=== PATIENT | female | born 1935 | race Caucasian/White ===

== ENCOUNTER → 2019-11-04 00:01 | Outpatient (RCR) | payer MEDICARE, OTHER, MEDICAID, SELFPAY | LOC: WOUND 10-07 11:06 | PROVIDERS: Family Provider Family Medicine; Visit Provider Thoracic Surgery (Cardiothoracic Vascular Surgery) | DX: E11.621 Type 2 diabetes mellitus with foot ulcer (principal); L97.512 Non-pressure chronic ulcer of other part of right foot with fat layer exposed; I96 Gangrene, not elsewhere classified | CPT/HCPCS: 11042 ×2 ==

== ENCOUNTER 2019-11-12 12:23 | Inpatient (IN) | payer MEDICARE, OTHER, MEDICAID, SELFPAY ==
[2019-11-12] VITALS (14 sets, daily range): BP systolic 82–114; BP diastolic 38–74; PULSE 92–120; RESP 14–27; TEMP 36.6; O2SAT 95–100; BMI 37.8
--- NOTE | 2019-11-12 12:26 | ED_ITS ---
Entered by Alla Ann, acting as scribe for HPI - CPR General: Chief Complaint: Cardiac Arrest/CPR Stated Complaint: POST CPR Time Seen by Provider: 11/12/19 12:28 Source: patient and EMS Mode of arrival: EMS Limitations: no limitations History of Present Illness: HPI narrative: 83 yo female presents with shortness of breath and unresponsive at dialysis clinic. per EMS when they arrived the pt was pulseless and they started CPR for 2 minutes. per family pt wears 3L of Oxygen at home. pt had nausea and vomiting this morning. pt states she just has knee pain. pt denies any other symptoms at this time. 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: No Shock advised: No Initial findings in the field: unresponsive and no pulse (per EMS for 2 minutes) Associated symptoms: chest pain (at the dialysis clinic) Known history of: other (Afib with RVR) Treatments prior to arrival: chest compressions and other (oxygen) Review of Systems General: Reports: 10 or more systems reviewed and unremarkable except in HPI and below Const: Reports: fatigue and malaise; Denies: fever, chills, body aches or night sweats Eyes: Reports: blurry vision; Denies: change in vision ENMT: Denies: throat pain, oral sores/lesions, dental pain, nasal discharge or nasal congestion GI: Reports: nausea, vomiting and constipation; Denies: abdominal pain, vomiting blood, coffee grounds in vomit, difficulty swallowing, heartburn/indigestion, diarrhea, cramping, blood in stool or black tarry stool : Denies: flank pain, painful urination, urinary frequency, urinary urgency, urinary incontinence or blood in urine Musc: Reports: back pain and extremity pain; Denies: neck pain, extremity swelling, joint pain or joint swelling Skin/Breast: Denies: rash, itching or redness Neuro: Denies: headache, numbness in extremities, weakness in extremities, changes in sensation, lack of coordination, difficulty walking, frequent falls, dizziness, vertigo or confusion Psych: Denies: anxiety, depression, loss of interest, visual hallucinations, auditory hallucinations, suicidal ideation or homicidal ideation Endo: Denies: excessive urination, excessive thirst, tired all the time or cold intolerance Simeon/Lymph: Denies: easy bruising, easy bleeding, petechiae, enlarged lymph nodes or tender lymph nodes PFSH ED PFSH: Statuses (acute, chronic, etc) shown below reflect problem list status as previously entered and may not be historically accurate Medical History (Updated 11/12/19 @ 20:03 by Den Lind MD) CAD (coronary artery disease) (Acute) CHF (congestive heart failure) (Acute) Hemodialysis access, AV graft (Acute) History of arthritis (Acute) History of chronic back pain (Acute) History of chronic hypertension (Acute) History of diabetes mellitus (Acute) Renal disease (Acute) Systolic and diastolic CHF, acute on chronic (Acute) Surgical History History of coronary angioplasty (Acute) Family History (Updated 11/12/19 @ 20:02 by Den Lind MD) Other CAD (coronary artery disease) Diabetes Hypertension Social History (Updated 11/12/19 @ 20:03 by Den Lind MD) Smoking and tobacco status: former smoker Alcohol intake: never Substance/Drug Use: never Household members: family Housing: House Current occupational status: retired Physical Exam Const: COMMON NORMALS: average body habitus and oriented x3 GENERAL APPEARANCE: cooperative, comfortable, well kempt and well developed NUTRITIONAL APPEARANCE: obese ORIENTATION/CONSCIOUSNESS: Yes awake, Yes oriented to person and Yes oriented to place HENMT: COMMON NORMALS: normocephalic, head/scalp atraumatic, EAC's normal, TM's normal bilaterally, external nose normal, moist oral mucous membranes and oropharynx normal HEAD & SCALP: normocephalic and atraumatic NOSE: external nose normal EXTERNAL AUDITORY CANAL: EAC's normal TYMPANIC MEMBRANE: TM's normal bilaterally MOUTH: oral and palatal mucosa normal, lip normal and tongue normal THROAT: posterior oropharynx normal and tonsils normal Eye: COMMON NORMALS: PERRL, EOMs intact bilaterally, conjunctivae normal and no scleral icterus CONJUNCTIVA: Yes conjunctivae normal PUPIL: Yes PERRL Neck/C-Spine: COMMON NORMALS: full ROM, no lymphadenopathy, supple, no meningeal signs and thyroid normal THYROID: thyroid normal and asymmetrical Lymph: LYMPHATIC: no lymphadenopathy noted Chest: CHEST: Yes tenderness sternum (mild) Resp: COMMON NORMALS: normal respiratory effort, no retractions, no use of accessory muscles and clear to auscultation bilaterally AUSCULTATION: clear to auscultation bilaterally Cardio: COMMON NORMALS: regular rate and regular rhythm RATE: regular rate RHYTHM: regular rhythm HEART SOUNDS: no murmurs GI: COMMON NORMALS: normal to inspection, nondistended, normoactive bowel sounds, soft to palpation and no hepatosplenomegaly PALPATION: Yes soft and Yes no hepatosplenomegaly : COMMON NORMALS: Yes no CVA tenderness BLADDER/KIDNEY EXAM: Yes no CVA tenderness Back/Pelvis: COMMON NORMALS: no CVA tenderness LUMBAR SPINE/LOWER BACK: Yes normal to inspection Extremity: COMMON NORMALS: no clubbing, cyanosis or edema, no calf tenderness and no pedal edema Neuro: COMMON NORMALS: oriented x3 SENSORIUM/ORIENTATION: Yes oriented to person and Yes oriented to place MENINGEAL SIGNS: Yes no meningeal signs Psych: APPEARANCE: Yes well kempt Skin: COMMON NORMALS: no rashes or lesions noted and skin turgor normal GENERAL SKIN EXAM: no rashes or lesions noted and turgor normal Course ED course: [address] Thomas for admission, he will admit the pt. Patient is doing well at this point she spontaneously converted she is awake and alert. Family is present reports she is had several these episodes at home with syncopal-like episodes she had previously had known A. fib with RVR she is on metoprolol. She is also on Midrin. Were going to go ahead and put her in ICU I suspect she may have had a syncopal episode and never was really in full cardiac arrest. She has peripheral vascular disease and is very difficult to palpate a pulse when I examine her. She is anemic as well. I suspect she will need some medication adjustments. Her first troponin is elevated I think that is more consistent with her chronic renal disease but will need subsequent troponins. Vital Signs: Vital signs: Vital Signs Temperature 98.9 F 11/13/19 06:00 Pulse Rate 88 11/13/19 06:00 Respiratory Rate 22 H 11/13/19 06:00 Blood Pressure 90/37 11/13/19 06:00 Pulse Oximetry 100 11/13/19 06:00 MDM - Cardiac Arrest/CPR Lab Data: Labs: Lab Results 11/12/19 11/12/19 11/12/19 Range/Units 12:55 12:55 12:55 WBC 8.0 (4.0-10.0) 10^3/ uL RBC 2.48 L (4.1-5.3) 10^6/u L Hgb 8.1 L (11.5-15.3) g/dL Hct 27.1 L (37.0-47.0) % MCV 109.3 H (81-99) fL MCH 32.7 (28.0-34.0) pg MCHC 29.9 L (30.0-36.0) g/dL RDW 15.2 H (12.1-15.1) % Plt Count 113 L (130-400) 10^3/c mm MPV 11.9 H (7.4-10.4) fL Neut % (Auto) 80.2 % Lymph % (Auto) 10.5 % Rich % (Auto) 7.6 % Eos % (Auto) 0.5 % Baso % (Auto) 0.4 % Neut # (Auto) 6.4 (1.8-7.7) 10^3/u L Lymph # (Auto) 0.8 (0.8-4.8) 10^3/u L Rich # (Auto) 0.6 (0.2-0.9) 10^3/u L Eos # (Auto) 0.0 (0.0-0.8) 10^3/u L Baso # (Auto) 0.0 (0.0-0.1) 10^3/u L Nucleated RBC % (a uto) 0 % Nucleated RBCs # 0.0 /100WBC PT 14.50 H (10.5-13.3) SECO NDS INR 1.10 (0.8-1.2) APTT 33.4 (23.9-36.7) SECO NDS Sodium 139 (136-145) mmol/L Potassium 3.8 (3.5-5.1) mmol/L Chloride 99 (98-107) mmol/L Carbon Dioxide 27 (22-29) mmol/L Anion Gap 16.8 (5-19) BUN 24 H (8-23) mg/dL Creatinine 3.2 H (0.5-0.9) mg/dL Glucose 246 H (74-106) mg/dL Lactic Acid (0.5-2.2) mmol/L Calcium 8.7 L (8.8-10.2) mg/Dl Total Bilirubin 0.4 (0.15-1.2) mg/dL AST 18 (0-32) U/L ALT 12 (0-33) U/L Alkaline Phosphata se 209 H (35-105) IU/L Troponin T Baselin e (0-10) ng/mL Total Protein 6.2 L (6.6-8.7) g/dL Albumin 3.4 L (3.5-5.2) g/dL Globulin 2.8 (1.3-4.6) g/dL Procalcitonin (0-0.8) ng/mL TSH 1.52 (0.27-4.20) uIU/ mL 11/12/19 11/12/19 11/12/19 Range/Units 12:55 12:55 12:55 WBC (4.0-10.0) 10^3/ uL RBC (4.1-5.3) 10^6/u L Hgb (11.5-15.3) g/dL Hct (37.0-47.0) % MCV (81-99) fL MCH (28.0-34.0) pg MCHC (30.0-36.0) g/dL RDW (12.1-15.1) % Plt Count (130-400) 10^3/c mm MPV (7.4-10.4) fL Neut % (Auto) % Lymph % (Auto) % Rich % (Auto) % Eos % (Auto) % Baso % (Auto) % Neut # (Auto) (1.8-7.7) 10^3/u L Lymph # (Auto) (0.8-4.8) 10^3/u L Rich # (Auto) (0.2-0.9) 10^3/u L Eos # (Auto) (0.0-0.8) 10^3/u L Baso # (Auto) (0.0-0.1) 10^3/u L Nucleated RBC % (a uto) % Nucleated RBCs # /100WBC PT (10.5-13.3) SECO NDS INR (0.8-1.2) APTT (23.9-36.7) SECO NDS Sodium (136-145) mmol/L Potassium (3.5-5.1) mmol/L Chloride (98-107) mmol/L Carbon Dioxide (22-29) mmol/L Anion Gap (5-19) BUN (8-23) mg/dL Creatinine (0.5-0.9) mg/dL Glucose (74-106) mg/dL Lactic Acid 2.5 H (0.5-2.2) mmol/L Calcium (8.8-10.2) mg/Dl Total Bilirubin (0.15-1.2) mg/dL AST (0-32) U/L ALT (0-33) U/L Alkaline Phosphata se (35-105) IU/L Troponin T Baselin e 173 H* (0-10) ng/mL Total Protein (6.6-8.7) g/dL Albumin (3.5-5.2) g/dL Globulin (1.3-4.6) g/dL Procalcitonin 0.82 H (0-0.8) ng/mL TSH (0.27-4.20) uIU/ mL Imaging Data^: CXR: Radiologist's impression: [address] [address] XRay Report Signed Patient: Po Rowan#: [id number] : 6Acct:[id number] Age/Sex: 83 / FADM Date: 11/12/19 Loc: ER Attending Dr: Ordering Physician: Ayden Alves DO Date of Service: 11/12/19 Procedure(s): XR chest 1V portable [id number] Accession Number(s): [id number] Report Number: [id number] WS: [id number] PORTABLE CHEST HISTORY: Post-CPR. COMPARISON: 05/14/2019 Pacer pads are present over the thorax. Lung volumes are decreased. Bilateral pulmonary vascular congestion and scattered opacifications. No pleural effusion or pneumothorax. Cardiac size: Moderately enlarged cardiac silhouette. Mediastinum/Aorta: Moderate calcified thoracic aorta. No osseous abnormality seen. XR/XR chest 1V portable [id number] IMPRESSION: 1. Moderate pulmonary venous edema. 2. Moderate cardiomegaly. 3. Calcified aorta. Dictated By:Yudy Gramajo DO Signed By:Yudy Gramajo DOSigned Date/Time:11/12/19 1303 Discharge Plan Discharge Patient Disposition: Admitted As Inpatient Admit Provider: Den Lind Clinical Impression: Cardiac arrest, Anemia in ESRD (end-stage renal disease), End-stage renal disease (ESRD), Atrial fibrillation with rapid ventricular response Coronary artery disease Qualifiers: Coronary Disease-Associated Artery/Lesion type: [place] artery [place] vs. transplanted heart: [place] heart Associated angina: without angina Qualified Code(s): I25.10 - Atherosclerotic heart disease of [place] coronary artery without angina pectoris Diabetes mellitus Qualifiers: Diabetes mellitus type: type 2 Diabetes mellitus senior care insulin use: with senior care use Diabetes mellitus complication status: with kidney complications Diabetes mellitus complication detail: with chronic kidney disease Chronic kidney disease stage: on chronic dialysis Qualified Code(s): E11.22 - Type 2 diabetes mellitus with diabetic chronic kidney disease Condition: Stable Referrals: Dimitrios Tejada MD [Primary Care Provider] - Discharge Date/Time: 11/12/19 15:49 Coding Level of Care Code ED Water Pollution Control Inspector for Chg Fwd Exam Problem Focused The documentation recorded by the Seth ellis Bridget Annette, accurately reflects the service I personally performed and the decisions made by Joselyn atwood Curtis L, DO Nov 12, 2019 12:23
--- NOTE | 2019-11-12 12:35 | XR_ITS ---
WS: [id number] PORTABLE CHEST HISTORY: Post-CPR. COMPARISON: 05/14/2019 Pacer pads are present over the thorax. Lung volumes are decreased. Bilateral pulmonary vascular congestion and scattered opacifications. No pleural effusion or pneumothorax. Cardiac size: Moderately enlarged cardiac silhouette. Mediastinum/Aorta: Moderate calcified thoracic aorta. No osseous abnormality seen. XR/XR chest 1V portable [id number] IMPRESSION: 1. Moderate pulmonary venous edema. 2. Moderate cardiomegaly. 3. Calcified aorta.
--- NOTE | 2019-11-12 12:39 | ECG_ITS ---
Measurements Intervals [place] Rate: 99 P: 5 OK: 142 QRS: -64 QRSD: 123 T: 115 QT: 409 QTc: 525 SINUS RHYTHM WITH OCCASIONAL SUPRAVENTRICULAR PREMATURE COMPLEXES LEFT ANTERIOR FASCICULAR BLOCK [QRS AXIS <= -45, QR IN I, RS IN II] LEFT VENTRICULAR HYPERTROPHY AND ST-T CHANGE [VOLTAGE CRITERIA PLUS ST/T ABNORMALITY] Compared to ECG 05/13/2019 19:15:41 Left ventricular hypertrophy now present ST (T wave) deviation now present Sinus tachycardia no longer present Ventricular premature complex(es) no longer present Myocardial infarct finding no longer present Electronically Signed On 11-12-2019 15:40:12 IT PROGRAMMER ANALYST by Arcadio Gonzalez M.D. [email or web address]
[2019-11-12 13:02] LABS: Basophils % 0.4 %; Eosinophils % 0.5 %; Hematocrit 27.1 % (37.0-47.0); Hemoglobin 8.1 g/dL (11.5-15.3); Lymphocytes # 0.8 10^3/uL (0.8-4.8); Lymphocytes % 10.5 %; Mean Corpuscular HGB Conc 29.9 g/dL (30.0-36.0); Mean Corpuscular Hemoglobin 32.7 pg (28.0-34.0); Mean Corpuscular Volume 109.3 fL (81-99); Mean Platelet Volume 11.9 fL (7.4-10.4); Monocytes # 0.6 10^3/uL (0.2-0.9); Monocytes % 7.6 %; Neutrophils # 6.4 10^3/uL (1.8-7.7); Neutrophils % 80.2 %; Nucleated Red Blood Cells % 0 %; Platelet Count 113 10^3/cmm (130-400); Red Blood Count 2.48 10^6/uL (4.1-5.3); Red Cell Distribution Width 15.2 % (12.1-15.1)
[2019-11-12 13:14] LABS: Partial Thromboplastin Time 33.4 SECONDS (23.9-36.7)
[2019-11-12 13:26] LABS: Alanine Aminotransferase 12 U/L (0-33); Albumin Level 3.4 g/dL (3.5-5.2); Alkaline Phosphatase 209 IU/L (35-105); Anion Gap 16.8 (5-19); Aspartate Amino Transferase 18 U/L (0-32); Blood Urea Nitrogen 24 mg/dL (8-23); Calcium 8.7 mg/Dl (8.8-10.2); Carbon Dioxide 27 mmol/L (22-29); Chloride 99 mmol/L (98-107); Globulin 2.8 g/dL (1.3-4.6); Glucose 246 mg/dL (74-106); Potassium 3.8 mmol/L (3.5-5.1); Sodium 139 mmol/L (136-145); Thyroid Stimulating Hormone 1.52 uIU/mL (0.27-4.20); Total Bilirubin 0.4 mg/dL (0.15-1.2); Total Protein 6.2 g/dL (6.6-8.7)
[2019-11-12 13:31] LABS: Troponin(5th) Baseline 173 ng/mL (0-10)
--- NOTE | 2019-11-12 13:41 | PC.NURSE ---
pt given warm blanket. pharmacy in room.
[2019-11-12] MEDS: ondansetron 2 mg/ML SDV 2 mL 4 MG IVP (13:46)
--- NOTE | 2019-11-12 14:39 | ECG_ITS ---
Measurements Intervals [place] Rate: 103 P: 27 SD: 160 QRS: -58 QRSD: 122 T: 124 QT: 395 QTc: 518 SINUS TACHYCARDIA LEFT AXIS DEVIATION [QRS AXIS < -30] MODERATE INTRAVENTRICULAR CONDUCTION DELAY [110+ ms QRS DURATION] ST DEVIATION AND MODERATE T-WAVE ABNORMALITY, CONSIDER LATERAL ISCHEMIA [-0.1+ mV T WAVE IN I/aVL/V5/V6] Compared to ECG 05/13/2019 19:15:41 Left-axis deviation now present Intraventricular conduction delay now present T-wave abnormality now present Possible ischemia now present Ventricular premature complex(es) no longer present Left anterior fascicular block no longer present Myocardial infarct finding no longer present Electronically Signed On 11-12-2019 15:41:36 SANITATION INSPECTOR by Arcadio Gonzalez M.D. [email or web address]
--- NOTE | 2019-11-12 14:43 | PC.NURSE ---
waiting for ICU to call back for report
--- NOTE | 2019-11-12 14:45 | CT_ITS ---
WS: [id number] CT HEAD TECHNIQUE: Noncontrast CT of the head obtained from the skullbase to the vertex. CLINICAL INFORMATION: post stroke COMPARISON: 11 03,018 DLP: 1275.[address] scans at [facility] use at least one of these dose optimization techniques: automat ed exposure control; mA and/or kV adjustment per patient size (includes targeted exams where dose is matched to clinical indication); or iterative reconstruction. FINDINGS: No evidence of intracranial hemorrhage or mass effect. Ventricular system and basal cisterns are dueñas nt. Moderate small vessel changes with moderate parenchymal volume loss. Chronic lacunar infarcts sharon ateral basal ganglia, right caudate, and right midbrain. Vascular calcification. No extra-axial fluid collections. No evidence of mass or mass effect. Normal stroud-white differentiation. Paranasal sinuses and mastoid air cells are well aerated. .Normal visualized soft tissues. CT/CT head wo con* [id number] IMPRESSION: 1. No evidence of intracranial hemorrhage or mass effect. 2. Moderate small vessel changes with moderate parenchymal volume loss. 3. Chronic lacunar infarcts. 4. No acute intracranial findings.
--- NOTE | 2019-11-12 14:45 | CT_ITS ---
WS: [id number] CT ABDOMEN PELVIS TECHNIQUE: Noncontrast CT of the abdomen and pelvis with coronal and sagittal reformatted images. CLINICAL INFORMATION: abdominal pain, r/o pyelo COMPARISON: None. DLP: 1526.[address] scans at [facility] use at least one of these dose optimization techniques: automat ed exposure control; mA and/or kV adjustment per patient size (includes targeted exams where dose is matched to clinical indication); or iterative reconstruction. FINDINGS: Noncontrast liver is normal. Mild gallbladder wall thickening which otherwise appears normal. Cardiom egaly. Dense vascular calcification. Small bilateral pleural effusions with bibasilar infiltrates and atelectasis. Patchy atelectasis in the right middle lobe. Fatty atrophy of the pancreas. Dense mesenteric calcification. Small infrarenal abdominal aortic aneu rysm measuring 1.7 x 1.9 cm. Adrenal glands are normal. Bilateral renal cortical atrophy. No hydronep hrosis. No evidence of perirenal fluid collection or abscess. Calcified uterus. Right ovarian low-attenuation lesion measuring 2.1 CM. This can be followed up with ultrasound. No evidence of small or large bowel obstruction. Small splenule. Advanced degenerative c hanges lower thoracic and lumbar spine with vacuum disc phenomenon. Endplate Schmorl's nodes. No acut e appearing compression fractures. CT/CT abdomen pelvis wo con [id number] IMPRESSION: 1. No hydronephrosis. Advanced bilateral renal cortical atrophy with dense vas cular calcification. 2. Mild gallbladder wall thickening. This can be followed up with ultrasound. No pericholecystic fluid. 3. Dense vascular calcification. 4. Small infrarenal abdominal aortic aneurysm measuring 1.7 x 1.9 CM. 5. No evidence of small or large bowel obstruction. 6. Cardiomegaly with small bilateral pleural effusions and patchy infiltrates and compressive atelectasis lung bases. Recommend correlation for pneumonia. 7. Right ovarian low-attenuation lesion measuring 2.1 CM. This can be followed up with ultrasound.
[2019-11-12 15:09] LABS: Lactic Sepsis W/Reflex 2.5 mmol/L (0.5-2.2)
[2019-11-12 15:17] LABS: Procalcitonin 0.82 ng/mL (0-0.8)
[2019-11-12 16:24] LABS: Troponin 5 2HR 181.6 ng/mL (0-10); Troponin 5 2HR Delta 8.6 ABS# (0-10)
[2019-11-12 16:41] LABS: Reflex Lactate Order Y
[2019-11-12 17:39] LABS: Glucose Point of Care 292 mg/dL (70-110)
--- NOTE | 2019-11-12 17:49 | PM.HP ---
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 At that time after discussion with family it was decided not to do any further intervention. Patient was brought to the ER from dialysis center by EMS after she had coded after having dialysis for around 2 hours. [place] she had CPR for around 12-13 cycles along with Ambu bag ventilation when she regained ROSC so was brought to the ER. On evaluation patient is awake, alert and oriented but hard of hearing. As per her daughter who is bedside patient has been having recurrent nausea and vomiting after dialysis for last 2 months with patient being extremely lethargic, weak postdialysis for last 3 to 4 weeks. As per her family patient would be back to her baseline on following day. On speaking with the dialysis nurse regarding the event she stated patient just came back from the bathroom and was being re-hooked to the dialysis she became unresponsive and her pulse was nonpalpable so CPR was started. After on 12 cycles patient regained ROSC, spontaneous breathing and started moaning. Per the dialysis nurse for last couple of weeks during dialysis patient would go tachycardic but was not hooked to any monitor and on palpation of her radial pulses it was found to be irregular so it was thought that she is in atrial fibrillation. There is no documented EKG regarding same. On evaluation in ER patient is in sinus rhythm heart rate of over 110 with frequent VPCs, blood pressure 100/60 mmHg. Which as per her family is at baseline, saturating 92% on 4 L nasal cannula, AO x3. Review of Systems Const: Denies: fever, chills, body aches, change in appetite, malaise, night sweats, diaphoresis, change in sleep pattern, daytime sleepiness or snoring Eyes: Denies: change in vision, blurry vision, photophobia, eye discomfort or eye discharge ENMT: Denies: throat pain, enlarged tonsils, hoarseness, mouth pain, oral sores/lesions, dry mouth, tinnitus, nasal congestion or post nasal drip Card: Reports: palpitations, lightheadedness, shortness of breath on exertion and shortness of breath when lying down; Denies: chest pain, irregular heart rhythm, edema, swelling of feet/ankles, syncope, pre-syncope, leg pain with exertion or bluish discoloration of hands/feet Resp: Reports: shortness of breath; Denies: productive cough, non-productive cough, wheezing, stridor, pain on inspiration, change in phlegm color, coughing up blood or chest congestion GI: Reports: abdominal pain, nausea and vomiting; Denies: vomiting blood, coffee grounds in vomit, difficulty swallowing, heartburn/indigestion, diarrhea, constipation, bloating, cramping, change in bowel habits, painful bowel movements, blood in stool or black tarry stool : Denies: flank pain Musc: Denies: neck pain, back pain, extremity pain, joint pain, joint swelling, redness, joint stiffness or limited range of motion Neuro: Reports: headache and weakness in extremities; Denies: numbness in extremities, changes in sensation, lack of coordination, difficulty walking, frequent falls, dizziness, vertigo, confusion, slurred speech, difficulty communicating thoughts or seizure-like activity Psych: Denies: anxiety, depression, mood swings, panic attacks, hopelessness or irritability Endo: Denies: excessive urination, excessive thirst, tired all the time, cold intolerance, excessive sweating, flushing or heat intolerance Simeon/Lymph: Denies: easy bruising or easy bleeding All/Imm: Denies: tongue swelling, facial swelling or acute wheezing Medications/Allergies Home Medications Medication Instructions Recorded Confirmed Last Taken Type B complex with C 20-folic acid 1 cap PO DAILY 11/12/19 11/12/19 11/12/19 History [Triphrocaps] aspirin [Aspir-81] 81 mg PO DAILY 11/12/19 11/12/19 11/12/19 History biotin 1,000 mcg PO DAILY 11/12/19 11/12/19 11/11/19 History calcium carbonate-simethicone 1 tab PO BEDTIME 11/12/19 11/12/19 11/11/19 History [[place] Heartburn+Gas] cilostazol 100 mg PO BID 11/12/19 11/12/19 11/12/19 History dextromethorphan-guaifenesin 10 ml PO Q4H PRN 11/12/19 11/12/19 Unknown History [Tussin DM] diphenhydramine HCl [Banophen] 25 mg PO BEDTIME 11/12/19 11/12/19 11/11/19 History diphenhydramine-acetaminophen 2 tab PO BEDTIME 11/12/19 11/12/19 11/11/19 History [Tylenol PM Extra Strength] docusate sodium [Colace] 100 mg PO EVERY OTHER DAY PRN 11/12/19 11/12/19 Unknown History gabapentin 200 mg PO BEDTIME 11/12/19 11/12/19 11/11/19 History insulin glargine [Basaglar KwikPen 10 unit SUBCUT BID 11/12/19 11/12/19 Unknown History U-100 Insulin] midodrine See Rx Instructions .ROUTE .COMPLEX 11/12/19 11/12/19 11/12/19 History montelukast [Singulair] 10 mg PO DAILY 11/12/19 11/12/19 11/11/19 History nystatin [Nystop] 1 applic TOPICAL PRN 11/12/19 11/12/19 Unknown History omega 9-tgf-svr-fish oil [Fish Oil] 1 cap PO DAILY 11/12/19 11/12/19 11/12/19 History pantoprazole [Protonix] 40 mg PO DAILY 11/12/19 11/12/19 11/11/19 History pentoxifylline 400 mg PO TID 11/12/19 11/12/19 11/12/19 History sevelamer carbonate [Renvela] See Rx Instructions .ROUTE .COMPLEX 11/12/19 11/12/19 11/12/19 History vitamin B complex [Super B-50 1 cap PO DAILY 11/12/19 11/12/19 11/11/19 History Complex] Allergies Allergy/AdvReac Type Severity Reaction Status Date / Time morphine Allergy ADR-Itching Verified 11/12/19 12:47 Sulfa (Sulfonamide Allergy Unknown Verified 11/12/19 12:47 Antibiotics) PFSH Acute PFSH: Statuses (acute, chronic, etc) shown below reflect problem list status as previously entered and may not be historically accurate Medical History (Updated 11/12/19 @ 20:03 by Den Lind MD) CAD (coronary artery disease) (Acute) CHF (congestive heart failure) (Acute) Hemodialysis access, AV graft (Acute) History of arthritis (Acute) History of chronic back pain (Acute) History of chronic hypertension (Acute) History of diabetes mellitus (Acute) Renal disease (Acute) Systolic and diastolic CHF, acute on chronic (Acute) Surgical History History of coronary angioplasty (Acute) Family History (Updated 11/12/19 @ 20:02 by Den Lind MD) Other CAD (coronary artery disease) Diabetes Hypertension Social History (Updated 11/12/19 @ 20:03 by Den Lind MD) Smoking and tobacco status: former smoker Alcohol intake: never Substance/Drug Use: never Household members: family Housing: House Current occupational status: retired Vitals/I&O/Wt Last Vital Signs Temp 98 F 11/12/19 16:19 Pulse 96 11/12/19 17:34 Resp 23 H 11/12/19 17:34 BP 114/68 11/12/19 17:34 Pulse Ox 96 11/12/19 17:34 Weight last 48 hrs Weight 90.718 kg Physical Exam Narrative: EXAM NARRATIVE: General: No acute distress, AO x3 HEENT: PERRLA, pupils bilaterally equal and reactive Chest: Normal vesicular breath sounds, no added sounds, equal good air entry bilaterally CVS: S1-S2 regular, no murmurs, no tachycardia, no gallops, no rubs Abdomen: Soft, nontender, no organomegaly, bowel sounds present Neuro: No focal deficits, no facial deformity, AO x3, power 5/5 in all limbs Data Micro: Micro: Microbiology 11/12/19 15:00 Blood Culture - Pr eliminary Blood SPECIMEN [facility] GERMAINE 11/12/19 12:55 Blood Culture - Pr eliminary Blood SPECIMEN [facility] A&P Assessment and plan (1) Cardiac arrest: Status: Acute Code(s): I46.9 - Cardiac arrest, cause unspecified (2) Anemia in ESRD (end-stage renal disease): Status: Acute Code(s): N18.6 - End stage renal disease; D63.1 - Anemia in chronic kidney disease (3) End-stage renal disease (ESRD): Status: Acute Code(s): N18.6 - End stage renal disease (4) Diabetes mellitus: Status: Acute Qualifiers: Chronic kidney disease stage: on chronic dialysis Diabetes mellitus complication detail: with chronic kidney disease Diabetes mellitus complication status: with kidney complications Diabetes mellitus nursing home insulin use: with nursing home use Diabetes mellitus type: type 2 Qualified Code(s): E11.22 - Type 2 diabetes mellitus with diabetic chronic kidney disease; N18.6 - End stage renal disease; Z79.4 - intermediate (current) use of insulin; Z99.2 - Dependence on renal dialysis Code(s): E11.9 - Type 2 diabetes mellitus without complications (5) Coronary artery disease: Status: Acute Qualifiers: Associated angina: without angina Coronary Disease-Associated Artery/Lesion type: [place] artery [place] vs. transplanted heart: [place] heart Qualified Code(s): I25.10 - Atherosclerotic heart disease of [place] coronary artery without angina pectoris Code(s): I25.10 - Atherosclerotic heart disease of [place] coronary artery without angina pectoris (6) Systolic and diastolic CHF, acute on chronic: Status: Acute Code(s): I50.43 - Acute on chronic combined systolic (congestive) and diastolic (congestive) heart failure Additional A&P Information Additional A&P Information: Cardiac arrest: AAOx3, No focal deficit, maintaining saturation on minimal respirations. Event most likley 2/2 vasovagal from low BP during dialysis, less likely from CAD due to positive stress in past. In past it was decided by family not to pursue CAD further. Family confirms same right now. Baseline BP as per family is systolic around 90/60. Start on midodrine 10 mg TID PO. Admit to ICU for monitoring. Q1h neurovascular check. CT head. BCx stat SOB: MOst likley due to systolic and diastolic HF: EF 40%, garde I DD. Pt recieved 1.5lt fluid during resuscitation. Does not make any urine. Nephro consult for possible extra dialysis session. CKD: Start renal meds. Nephro consult for dialysis Abdmonal Pain, N/V : MOst likley past of vasovagal. No diarrhea at present. h/o c.diff CT abdomen/pelvis Anemia: MOst likely frmo AOCD: Baseline hb as per record 10-10.5 8 present. Family gives h/o hemmorhoids. Iron panel, occult blood stool Will discuss with nephro for procrit DNR/DNI as per discusion with family and pt. NPO in view of cardiac arrest. LUANA cerda [facility] PPx. Hold pharmacological meds in view of anemia famotidine for PUD ppx Attestations Medical Necessity Statement*: Patient would need admission for more than 2 midnights for evaluation of post cardiac arrest Critical Care Time: Critical care time: 105 - 134 mins Coding Level of Care Code Acute Consumer Loan Underwriter for g Fwd Diagnoses Cardiac arrest I46.9 Anemia in ESRD (end-stage renal disease) N18.6; D63.1 End-stage renal disease (ESRD) N18.6 Diabetes mellitus E11.22; N18.6; Z79.4; Z99.2 Chronic kidney disease stage: on chronic dialysis Diabetes mellitus complication detail: with chronic kidney disease Diabetes mellitus complication status: with kidney complications Diabetes mellitus parts counterman insulin use: with parts counterman use Diabetes mellitus type: type 2 Coronary artery disease I25.10 Associated angina: without angina Coronary Disease-Associated Artery/Lesion type: [place] artery [place] vs. transplanted heart: [place] heart Systolic and diastolic CHF, acute on chronic I50.43
--- NOTE | 2019-11-12 18:17 | PM.CONSULT ---
Providers/Reason For Consult Consulting Physican/Specialty*: Maria Fernanda Villasenor DO, telenephrology Reason for Consult*: ESRD Attending Physician: Den Lind MD Primary Care Provider: Dimitrios Tejada MD History of Present Illness History of Present Illness Ashtyn Rowan is a 83 year old female who experienced a cardiac arrest during dialysis today. She was removed from dialysis to use restroom (bowel movement) and upon returning and being reattached to dialysis had LOC, pulseless. Currently in ICU. Complains of nausea. States breathing is comfortable. ESRD on HD x 10 years, chronic hypotension, uses midodrine for BP support. Meds/Allergies Home Medications and Allergies Home Medications Medication Instructions Recorded Confirmed Type B complex with C 20-folic acid 1 cap PO DAILY 11/12/19 11/12/19 History [Triphrocaps] aspirin [Aspir-81] 81 mg PO DAILY 11/12/19 11/12/19 History biotin 1,000 mcg PO DAILY 11/12/19 11/12/19 History calcium carbonate-simethicone 1 tab PO BEDTIME 11/12/19 11/12/19 History [Juliann-[place] Heartburn+Gas] cilostazol 100 mg PO BID 11/12/19 11/12/19 History dextromethorphan-guaifenesin 10 ml PO Q4H PRN 11/12/19 11/12/19 History [Tussin DM] diphenhydramine HCl [Banophen] 25 mg PO BEDTIME 11/12/19 11/12/19 History diphenhydramine-acetaminophen 2 tab PO BEDTIME 11/12/19 11/12/19 History [Tylenol PM Extra Strength] docusate sodium [Colace] 100 mg PO EVERY OTHER DAY PRN 11/12/19 11/12/19 History gabapentin 200 mg PO BEDTIME 11/12/19 11/12/19 History insulin glargine [Basaglar KwikPen 10 unit SUBCUT BID 11/12/19 11/12/19 History U-100 Insulin] midodrine See Rx Instructions .ROUTE .COMPLEX 11/12/19 11/12/19 History montelukast [Singulair] 10 mg PO DAILY 11/12/19 11/12/19 History nystatin [Nystop] 1 applic TOPICAL PRN 11/12/19 11/12/19 History omega 4-cwo-nrb-fish oil [Fish Oil] 1 cap PO DAILY 11/12/19 11/12/19 History pantoprazole [Protonix] 40 mg PO DAILY 11/12/19 11/12/19 History pentoxifylline 400 mg PO TID 11/12/19 11/12/19 History sevelamer carbonate [Renvela] See Rx Instructions .ROUTE .COMPLEX 11/12/19 11/12/19 History vitamin B complex [Super B-50 1 cap PO DAILY 11/12/19 11/12/19 History Complex] Allergies Allergy/AdvReac Type Severity Reaction Status Date / Time morphine Allergy ADR-Itching Verified 11/12/19 12:47 Sulfa (Sulfonamide Allergy Unknown Verified 11/12/19 12:47 Antibiotics) Current Medications Current Medications Generic Name Dose Route Start Last Admin Trade Name Freq PRN Reason Stop Dose Admin Sevelamer Carbonate 0 mg 11/12/19 16:19 11/12/19 17:32 Renvela PO Not Given TID ASHLEY PFSH Acute PFSH: Statuses (acute, chronic, etc) shown below reflect problem list status as previously entered and may not be historically accurate Medical History CAD (coronary artery disease) (Acute) CHF (congestive heart failure) (Acute) History of arthritis (Acute) History of chronic back pain (Acute) History of chronic hypertension (Acute) History of diabetes mellitus (Acute) Renal disease (Acute) Surgical History History of coronary angioplasty (Acute) Social History Smoking and tobacco status: never smoked Vitals/I&O/Wt Last Vital Signs Temp 98 F 11/12/19 16:19 Pulse 96 11/12/19 17:34 Resp 23 H 11/12/19 17:34 BP 114/68 11/12/19 17:34 Pulse Ox 96 11/12/19 17:34 Weight last 48 hrs Weight 90.718 kg Physical Exam Narrative: EXAM NARRATIVE: grand-daughter at bedside provided most of history Const: GENERAL APPEARANCE: cooperative HENMT: COMMON NORMALS: normocephalic HEAD & SCALP: normocephalic Resp: EFFORT & INSPECTION: Yes tachypneic and Yes labored AUSCULTATION: rales Cardio: COMMON NORMALS: regular rate and regular rhythm RATE: regular rate RHYTHM: regular rhythm Extremity: OTHER: right UE AVF + bruit, + edema LE right > left Data Micro: Micro: Microbiology 11/12/19 15:00 Blood Culture - Pr eliminary Blood SPECIMEN [facility] 11/12/19 12:55 Blood Culture - Pr eliminary Blood SPE[facility]IMEN [facility] A&P Additional A&P Information Additional A&P Information: IMPRESSION: 1. ESRD 2. Cardiac arrest 3. Pulmonary edema, COPD, currently oxygenating well on 3 L NC 4. Anemia with recent bleeding hemorrhoids RECOMMENDATION: HD 1/9 AM with try slow fluid removal with midodrine support as BP tolerates Coding Level of Care Code Acute Automotive Service Advisor for Jasmin Drew Exam Problem Focused
--- NOTE | 2019-11-12 18:39 | ECG_ITS ---
Measurements Intervals [place] Rate: 98 P: -16 TX: 138 QRS: -55 QRSD: 120 T: 122 QT: 394 QTc: 505 SINUS RHYTHM LEFT AXIS DEVIATION [QRS AXIS < -30] MODERATE INTRAVENTRICULAR CONDUCTION DELAY [110+ ms QRS DURATION] ST DEVIATION AND MODERATE T-WAVE ABNORMALITY, CONSIDER LATERAL ISCHEMIA [-0.1+ mV T WAVE IN I/aVL/V5/V6] Compared to ECG 05/13/2019 19:15:41 Left-axis deviation now present Intraventricular conduction delay now present T-wave abnormality now present Possible ischemia now present Sinus tachycardia no longer present Ventricular premature complex(es) no longer present Electronically Signed On 11-12-2019 15:42:01 HOSPITAL PLAN ADMINISTRATOR by Arcadio Gonzalez M.D. [email or web address]
[2019-11-12 19:25] LABS: Troponin 5 6HR 238.5 ng/L (0-10)
[2019-11-12 20:54] LABS: Lactate (Lactic Acid level) 1.8 mmol/L (0.5-2.2)
[2019-11-12] MEDS: midodrine 5 mg TABLET 10 MG PO (21:53)
[2019-11-12] MEDS: diphenhydrAMINE 25 mg Capsule PO (21:54)
[2019-11-12] MEDS: gabapentin 100 mg Capsule 200 MG PO (21:54)
[2019-11-12] MEDS: acetaminophen 325 mg Tablet 650 MG PO (23:13)
[2019-11-12] MEDS: pantoprazole 40 mg SDV IVP (23:15)
[2019-11-13] VITALS (19 sets, daily range): BP systolic 61–112; BP diastolic 25–62; PULSE 81–160; RESP 17–40; TEMP 36.6–37.2; O2SAT 89–100
--- NOTE | 2019-11-13 00:55 | PC.NURSE ---
sudden onset afib with rvr. Unable to vagal out of tachycardia. Dr Tang notifiied. Discussed with pt and she does not want to be shocked for have compressions, but is willing to receive medications
--- NOTE | 2019-11-13 01:26 | P.PNCC_ITS ---
Critical Care Event Note Critical Care Event The high probability of a clinically significant, sudden or life threatening deterioration of the patient's cardiac system(s) required my full and direct attention, intervention and personal management. The critical care time is as shown and includes the following: [x] Data and vital sign review and interpretation [x] Patient assessment, examination and intervention [x] Documentation [x] Medication orders and management Called with patient having a clinical change. She was sleeping and went into atrial fibrillation with rapid ventricular response with heart rate as high as the 150s to low 160s. At that time blood pressure was in the 60s systolic. Earlier today at dialysis she had had a code. There was some report of intermittent tachycardia that was irregular felt to probably be A. fib but had never been captured. This was clearly A. fib on the monitor. Multiple vagal maneuvers were attempted without any change. Reports that she had been bradycardic earlier and has been hypotensive. Decision made to give her 150 mg of amiodarone push. Within a minute of the completion of this she converted to sinus rhythm in the 70s. She continues to be hypotensive. Giving her 250 ml bolus over the next hour. Patient does not want any heroic measures but she is okay with medical management of her arrhythmias. She was started on Midrin scheduled rather than just prior to dialysis earlier today because of hypotension. I am going to request morning labs to go on and get drawn now. Despite the above patient's blood pressures have stayed around 60 systolic. Map is 51. We will go on and start her on some pressors to get her blood pressure up. Oxygen saturations have remained stable. Critical Care Time Critical Care Time: Code activated: No Critical care time: 30 - 74 mins Coding Level of Care Code Acute Nailhead Setter for Jasmin Drew
[2019-11-13] MEDS: sodium chloride 0.9% 250 ML IV (01:30)
[2019-11-13 01:44] LABS: Basophils % 0.3 %; Eosinophils % 0.2 %; Hematocrit 28.2 % (37.0-47.0); Hemoglobin 8.2 g/dL (11.5-15.3); Lymphocytes # 1.4 10^3/uL (0.8-4.8); Lymphocytes % 15.3 %; Mean Corpuscular HGB Conc 29.1 g/dL (30.0-36.0); Mean Corpuscular Volume 110.2 fL (81-99); Mean Platelet Volume 12.1 fL (7.4-10.4); Monocytes # 1.1 10^3/uL (0.2-0.9); Monocytes % 12.5 %; Neutrophils # 6.5 10^3/uL (1.8-7.7); Neutrophils % 71.5 %; Nucleated Red Blood Cells % 0 %; Platelet Count 129 10^3/cmm (130-400); Red Blood Count 2.56 10^6/uL (4.1-5.3); Red Cell Distribution Width 15.7 % (12.1-15.1); White Blood Count 9.1 10^3/uL (4.0-10.0)
[2019-11-13 01:56] LABS: Alanine Aminotransferase 13 U/L (0-33); Albumin Level 3.4 g/dL (3.5-5.2); Alkaline Phosphatase 211 IU/L (35-105); Anion Gap 19.8 (5-19); Aspartate Amino Transferase 23 U/L (0-32); Blood Urea Nitrogen 35 mg/dL (8-23); Calcium 8.9 mg/Dl (8.8-10.2); Carbon Dioxide 25 mmol/L (22-29); Chloride 98 mmol/L (98-107); Glucose 256 mg/dL (74-106); Magnesium 2.3 mg/dL (1.7-2.3); Phosphorus 3.6 mg/dL (2.5-4.5); Potassium 4.8 mmol/L (3.5-5.1); Sodium 138 mmol/L (136-145); Total Bilirubin 0.4 mg/dL (0.15-1.2); Total Protein 6.4 g/dL (6.6-8.7)
[2019-11-13 04:57] LABS: Iron 65 ug/dL (37-145); Percent Saturation 31.8 % (20-50); Total Iron Binding Capacity 204 mg/dL; Unsaturated Iron Binding 139 ug/dL (112-347)
--- NOTE | 2019-11-13 07:16 | PC.NURSE ---
Report received from nurse Mel. GIL. Patient resting in bed. HR 86 and BP soft at 80/51. Levo running. Titrating levo up now.
--- NOTE | 2019-11-13 07:35 | PC.NURSE ---
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 Pupil is responsive.
--- NOTE | 2019-11-13 08:23 | PC.NURSE ---
Patient states that she does not make urine at baseline. She is anuric now.
--- NOTE | 2019-11-13 08:27 | PC.NURSE ---
Patient refuses SCDs at this time due to discomfort that family states is due to Diabetic neuropathy.
--- NOTE | 2019-11-13 11:06 | PC.NURSE ---
DR. Goins at bedside rounding.
[2019-11-13] MEDS: pantoprazole 40 mg SDV IVP ×2 (11:59→21:20)
--- NOTE | 2019-11-13 14:01 | ECG_ITS ---
Measurements Intervals [place] Rate: 80 P: -12 IN: 137 QRS: -58 QRSD: 117 T: 144 QT: 410 QTc: 475 SINUS RHYTHM LEFT ANTERIOR FASCICULAR BLOCK [QRS AXIS <= -45, QR IN I, RS IN II] ST DEVIATION AND MODERATE T-WAVE ABNORMALITY, CONSIDER LATERAL ISCHEMIA Compared to ECG 11/12/2019 14:41:38 Left anterior fascicular block now present Left-axis deviation no longer present Intraventricular conduction delay no longer present T-wave abnormality still present Possible ischemia still present Electronically Signed On 11-13-2019 14:09:34 TOOTH CUTTER PINION by Ines Cruz M.D. [email or web address]
--- NOTE | 2019-11-13 14:11 | P.PN_ITS ---
Subjective Subjective: Interval history: weak and having chest discomfort, dyspnea same overnight she went into atrial fibrillation, became more hypotensive, currently on levophed Vitals/I&O/Wt Last Vital Signs Temp 98.9 F 11/13/19 12:00 Pulse 99 11/13/19 12:00 Resp 31 H 11/13/19 12:00 BP 101/25 11/13/19 12:00 Pulse Ox 100 11/13/19 08:00 11/12/19 11/13/19 11/13/19 22:59 06:59 14:59 Intake Total 353.000 / 353.000 400 / 400 Output Total 0 / 0 Balance 353.000 / 353.000 400 / 400 Weight last 48 hrs Weight 90.718 kg Physical Exam Const: GENERAL APPEARANCE: cooperative Resp: EFFORT & INSPECTION: Yes labored AUSCULTATION: rhonchi Cardio: RHYTHM: abnormal rhythm Extremity: GENERAL: Yes edema Data Micro: Micro: Microbiology 11/12/19 07:28 MRSA Culture - Fin al Nose 11/12/19 15:00 Blood Culture - Pr eliminary Blood SPECIMEN [facility] GER[facility] 11/12/19 12:55 Blood Culture - Pr eliminary Blood SPECIMEN [facility] GERMAINE A&P Additional A&P Information Additional A&P Information: IMPRESSION: 1. ESRD 2. Cardiac arrest, + troponins, now on pressors 3. Pulmonary edema, COPD, currently oxygenating well on 3 L NC 4. Anemia with recent bleeding hemorrhoids RECOMMENDATION: She appears to be less hemodynamically stable today and I have decided not to attempt dialysis. Adequate oxygenation, potassium normal. Will plan on dialysis tomorrow. Consider transfusion of pRBC during HD. Attestations Medical Necessity Statement*: critically ill Coding Level of Care Code Acute Auto Self Service Station Attendant for Jasmin Drew
--- NOTE | 2019-11-13 14:46 | PM.MISC ---
Miscellaneous Note Purpose of Documentation: Event note Note: Patient became acutely tachypneic this afternoon. Extensive rales all over Also started to become more lethargic. Assessed for high risk dialysis session this afternoon as patient appears to have pulmonary edema. Family eventually decided to hold off now. Extensive discussion with daughter and grand daughter at bedside. In keeping with patient's known wishes, it was elected to proceed with no further escalation of care, including stop uptitrating levophed. Will also add ativan and dilaudid (rashes with morphine) for air hunger in an effort to maximize comfort. Family states that if patient makes it through the night, they want to reconsider dialysis tomorrow morning. They have been explained that this may be futile as patient exhibiting signs of air hunger at this time.
--- NOTE | 2019-11-13 14:46 | PM.PN ---
Subjective Subjective: Interval history: Patient was seen and examined earlier this morning. Overnight events and labs noted. In the morning patient appeared alert, awake and oriented. She complained of intermittent chest pain, offered EKG. She is already on maximal medical management for CAD, except for limitations currently imposed by hypotension. She refused any further cardiac w/up. Multiple times during the interview she states to let go if its time . Passed swallow screen this morning and diet has been resumed. Dialysis on hold today Medications: Reviewed: Yes Vitals/I&O/Wt Last Vital Signs Temp 98.9 F 11/13/19 12:00 Pulse 99 11/13/19 12:00 Resp 31 H 11/13/19 12:00 BP 101/25 11/13/19 12:00 Pulse Ox 100 11/13/19 08:00 11/12/19 11/13/19 11/13/19 22:59 06:59 14:59 Intake Total 353.000 / 353.000 400 / 400 Output Total 0 / 0 Balance 353.000 / 353.000 400 / 400 Weight last 48 hrs Weight 90.718 kg Physical Exam Narrative: EXAM NARRATIVE: Gen: Awake, alert and oriented x3, NAD CVS: S1S2N RS: Clear anteriorly, scattered B/L crackles Abd: Soft, ND/NT, BS+ Data Micro: Micro: Microbiology 11/12/19 07:28 MRSA Culture - Fin al Nose 11/12/19 15:00 Blood Culture - Pr eliminary Blood SPE[facility]IMEN [facility]ER[facility] 11/12/19 12:55 Blood Culture - Pr eliminary Blood SPECIMEN [facility] A&P Assessment and plan (1) Cardiac arrest: Status: Acute Code(s): I46.9 - Cardiac arrest, cause unspecified (2) Anemia in ESRD (end-stage renal disease): Status: Acute Code(s): N18.6 - End stage renal disease; D63.1 - Anemia in chronic kidney disease (3) End-stage renal disease (ESRD): Status: Acute Code(s): N18.6 - End stage renal disease (4) Diabetes mellitus: Status: Acute Qualifiers: Chronic kidney disease stage: on chronic dialysis Diabetes mellitus complication detail: with chronic kidney disease Diabetes mellitus complication status: with kidney complications Diabetes mellitus custodial insulin use: with custodial use Diabetes mellitus type: type 2 Qualified Code(s): E11.22 - Type 2 diabetes mellitus with diabetic chronic kidney disease; N18.6 - End stage renal disease; Z79.4 - senior care (current) use of insulin; Z99.2 - Dependence on renal dialysis Code(s): E11.9 - Type 2 diabetes mellitus without complications (5) Coronary artery disease: Status: Acute Qualifiers: Associated angina: without angina Coronary Disease-Associated Artery/Lesion type: [place] artery [place] vs. transplanted heart: [place] heart Qualified Code(s): I25.10 - Atherosclerotic heart disease of [place] coronary artery without angina pectoris Code(s): I25.10 - Atherosclerotic heart disease of [place] coronary artery without angina pectoris (6) Systolic and diastolic CHF, acute on chronic: Status: Acute Code(s): I50.43 - Acute on chronic combined systolic (congestive) and diastolic (congestive) heart failure Additional A&P Information Additional A&P Information: Cardiac arrest: AAOx3, No focal deficit, maintaining saturation on minimal respirations. Overnight developed A fib with RVR for which she is on Amiodarone drip. Overnight midodrine remained on hold, needed to start levophed to maintain blood pressure. Event most likley 2/2 vasovagal from low BP during dialysis, less likely from CAD due to positive stress in past. Ppatient declines any further cardiac testing as she state sthis is not in keeping with her GOC. Start on midodrine 10 mg TID PO now that passed swallow screen SOB: MOst likley due to systolic and diastolic HF: EF 40%, garde I DD. Pt recieved 1.5lt fluid during resuscitation. Does not make any urine. CKD: Start renal meds. Nephro consult for dialysis Abdmonal Pain, N/V : MOst likley past of vasovagal. No diarrhea at present. h/o c.diff CT abdomen/pelvis Anemia: MOst likely frmo AOCD: Baseline hb as per record 10-10.5 8 present. Family gives h/o hemmorhoids. Iron panel, occult blood stool Will discuss with nephro for procrit DNR/DNI as per discusion with family and pt. NPO in view of cardiac arrest. SW eval [facility] PPx. 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[employer] Diagnoses Cardiac arrest I46.9 Anemia in ESRD (end-stage renal disease) N18.6; D63.1 End-stage renal disease (ESRD) N18.6 Diabetes mellitus E11.22; N18.6; Z79.4; Z99.2 Chronic kidney disease stage: on chronic dialysis Diabetes mellitus complication detail: with chronic kidney disease Diabetes mellitus complication status: with kidney complications Diabetes mellitus custodial insulin use: with termination clerk use Diabetes mellitus type: type 2 Coronary artery disease I25.10 Associated angina: without angina Coronary Disease-Associated Artery/Lesion type: [place] artery [place] vs. transplanted heart: [place] heart Systolic and diastolic CHF, acute on chronic I50.43
[2019-11-13] MEDS: midodrine 5 mg TABLET 10 MG PO ×2 (15:01→21:19)
--- NOTE | 2019-11-13 15:08 | PC.NURSE ---
Call placed to Dr. Goins to update her on patient's increased SOB and new onset crackles as well as diaphoresis. STAT EKG obtained and Dr. Goins came to bedside. Physician spoke in depth with family regarding patient's poor prognosis. Dr. Thayer called and rounded again on patient. Dr. Thayer states she will attempt to dialyze patient and spoke at length with family and patient regarding extreme risk of attempting dialysis. Family and patient state they would like to attempt dialysis regardless of the risks. Levophed continues to run and patient remains oriented.
[2019-11-13 15:29] LABS: Troponin T (5th) Once 487 ng/mL (0-10)
[2019-11-13] MEDS: HYDROmorphone 1 mg/mL INJ 1 mL 0.4 MG IVP (16:45)
--- NOTE | 2019-11-13 16:52 | PC.NURSE ---
Patient's family now discusses with this RN and Dr. Goins that they would prefer to wait to attempt dialysis until in the morning. Family verbalizes understanding of patient's critical state. Dr. Goins spoke at length with family regarding patient's increased work of breathing and use of dilaudid and ativan to ease symptoms. Family verbalizes understanding and requests dose of dilaudid at this time. Dose administered. Family remains in room.
[2019-11-13 18:51] LABS: Glucose Point of Care 312 mg/dL (70-110)
[2019-11-13 21:12] LABS: Glucose Point of Care 245 mg/dL (70-110)
[2019-11-13] MEDS: diphenhydrAMINE 25 mg Capsule PO (21:18)
[2019-11-13] MEDS: gabapentin 100 mg Capsule 200 MG PO (21:20)
[2019-11-14] VITALS (12 sets, daily range): BP systolic 59–112; BP diastolic 17–55; PULSE 53–89; RESP 12–26; O2SAT 99–100
[2019-11-14] MEDS: HYDROmorphone 1 mg/mL INJ 1 mL 0.4 MG IVP (03:12)
[2019-11-14 07:01] LABS: Glucose Point of Care 183 mg/dL (70-110)
[2019-11-14] MEDS: scopolamine 1.5 Patch 1 PATCH TRANSDERMA (08:50)
--- NOTE | 2019-11-14 10:24 | PC.NURSE ---
mts called with regard to comfort care..
--- NOTE | 2019-11-14 11:24 | PC.NURSE ---
ammio gtt off bp low 50 pal and heart rate quang at 50
--- NOTE | 2019-11-14 12:13 | PC.NURSE ---
pt at 1200 Dr Augustine here
--- NOTE | 2019-11-14 12:26 | P.DES_ITS ---
Discharge Providers DDS Date of Admission: 11/12/19 13:50 Date Summary Completed: 11/14/19 Attending Provider at Admission: Den Lind MD Time of : 12:00 Attending Provider at Discharge: Den Lind MD Primary Care Provider: Dimitrios Tejada MD DS Diagnoses Hospital Diagnoses (1) Cardiac arrest: (2) Anemia in ESRD (end-stage renal disease): (3) End-stage renal disease (ESRD): (4) Diabetes mellitus: Qualifiers: Chronic kidney disease stage: on chronic dialysis Diabetes mellitus complication detail: with chronic kidney disease Diabetes mellitus complication status: with kidney complications Diabetes mellitus fpc insulin use: with fpc use Diabetes mellitus type: type 2 Qualified Code(s): E11.22 - Type 2 diabetes mellitus with diabetic chronic kidney disease; N18.6 - End stage renal disease; 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 transplanted heart: [place] heart Qualified Code(s): I25.10 - Atherosclerotic heart disease of [place] coronary artery without angina pectoris (6) Systolic and diastolic CHF, acute on chronic: Reason for Visit Reason for Visit: Reason For Visit: POST CODE;AFIB W RVR;ESRD;DM;ANEMIA Summary Date and Time of : Date of : 11/14/19 Time of : 12:00 Summary: Summary: Ashtyn Rowan is a 83 year old female with past medical history of ESRD on maintenance hemodialysis Sunday, type 2 diabetes mellitus, peripheral arterial disease, hypertension, mixed systolic and diastolic heart failure with EF of 40% with recent stress test last year showing possible reversible ischemia in the distribution of LAD/LCx region. At that time after discussion with family it was decided not to do any further intervention. Patient was brought to the ER from dialysis center by EMS after she had coded after having dialysis for around 2 hours. [place] she had CPR for around 12-13 cycles along with Ambu bag ventilation when she regained ROSC so was brought to the ER. Patient was admitted to the ICU. During admission patient was AO x3 but was finding it difficult to breathe most likely from the fluid she received during resuscitation. Nephrology was consulted but patient could not undergo dialysis because of borderline blood pressures. During her stay patient's blood pressure continued to drop for which she was started on IV pressors and continued to have atrial fibrillation with rapid ventricular response for which she was started on amiodarone as digoxin could not be used because of CKD and other rate control medications could not be used because of low blood pressures. Due to her general deconditioning, multiple comorbidities, critical illness at presentation goals of care were discussed with the family and they decided to make patient comfort care without any escalation of care. Patient continued to remain on moderate dose of IV pressors to maintain her blood pressure without any escalation for 24 hours without any improvement. On readdressing goals of care family during the rounds on November 14 it was decided to continue with comfort measure but withdrawal of IV pressors. Levophed was gradually weaned off and after stopping of Levophed patient had hypotension, PEA cardiac arrest and was declared at 12 PM on November 14, 2019. Family was bedside and was counseled. Additional Data: Advance directives?: Yes Discharge Plan Discharge Patient Disposition: Condition: Stable Referrals: Dimitrios Tejada MD [Primary Care Provider] - Discharge Date/Time: 11/14/19 13:46 Probable Cause of Probable cause of : Cardiac arrest DS Attestations Time Spent in /Discharge Care*: greater than 30 min Quality - AMI: AMI present?: No Quality - Stroke: CVA present?: No Quality - VTE: VTE present?: No Coding Level of Care Code [facility] Cardiac arrest I46.9 Anemia in ESRD (end-stage renal disease) N18.6; D63.1 End-stage renal disease (ESRD) N18.6 Diabetes mellitus E11.22; N18.6; Z79.4; Z99.2 Chronic kidney disease stage: on chronic dialysis Diabetes mellitus complication detail: with chronic kidney disease Diabetes mellitus complication status: with kidney complications 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 transplanted heart: [place] heart Systolic and diastolic CHF, acute on chronic I50.43
[2019-11-17 00:01] LABS: Hepatitis B Surface Antigen. Non-Reactive (Nonreactive)
== END 2019-11-14 13:46 | disposition expired | DRG 296 ==
LOC: ER 13:47 → ICU 14:56
PROVIDERS: Internal Medicine; Student in an Organized Health Care Education/Training Program; Admitting Provider Student in an Organized Health Care Education/Training Program; Emergency Provider Family Medicine; Family Provider Family Medicine; PCP Family Medicine; Visit Provider Student in an Organized Health Care Education/Training Program
DX: I46.9 Cardiac arrest, cause unspecified (principal); N18.6 End stage renal disease; I50.43 Acute on chronic combined systolic (congestive) and diastolic (congestive) heart failure; I13.2 Hypertensive heart and chronic kidney disease with heart failure and with stage 5 chronic kidney disease, or end stage renal disease; E11.22 Type 2 diabetes mellitus with diabetic chronic kidney disease; D63.1 Anemia in chronic kidney disease; Z99.2 Dependence on renal dialysis; Z79.4 Long term (current) use of insulin; I25.10 Atherosclerotic heart disease of native coronary artery without angina pectoris; I48.91 Unspecified atrial fibrillation; E11.51 Type 2 diabetes mellitus with diabetic peripheral angiopathy without gangrene; Z51.5 Encounter for palliative care; Z99.81 Dependence on supplemental oxygen; Z87.891 Personal history of nicotine dependence; Z95.5 Presence of coronary angioplasty implant and graft; Z66 Do not resuscitate; J44.9 Chronic obstructive pulmonary disease, unspecified; I95.9 Hypotension, unspecified; R11.0 Nausea
CPT/HCPCS: 36415; 36416; 70450; 71045; 74176; 80053; 82962; 83540; 83550; 83605; 83735; 84100; 84145; 84443; 84484; 85025; 85610; 85730; 86850; 86900; 87040; 87340; 87641; 92523; 92610; 93005; 94664; 96372; 96374; 96375; 99283; A4222; C9113; J0282; J1170; J1815; J2405; J7050; J7060